=== PATIENT | female | born 1985 | race Caucasian/White ===

== ENCOUNTER 2018-06-30 06:28 | Inpatient (IN) | payer MEDICAID ==
[2018-06-30] MEDS ORDERED: OXYTOCIN 10 UNIT/ML VIAL ONE (06:56)
[2018-06-30] MEDS ORDERED: OXYTOCIN/NORMAL SALINE 20 UNIT/1,000 ML RTUINJ ONE (06:56)
[2018-06-30] MEDS ORDERED: LIDOCAINE 1% INJ-PF (10 MG/ML) 30 ML SDV ONE (06:56)
[2018-06-30] MEDS ORDERED: MISOPROSTOL 0.2 MG TABLET ONE (06:56)
[2018-06-30] MEDS: RINGERS SOLUTION,LACTATED 1,000 ML IV PRN ×2 (07:02→07:37)
[2018-06-30] MEDS ORDERED: EPHEDRINE SULFATE INJ 50 MG/1 ML AMPULE ONE (07:07)
[2018-06-30] MEDS ORDERED: FENTANYL/BUPIVACAINE/NS/PF 300 MCG/150 ML RTUINJ EPI ONE (07:07)
[2018-06-30] MEDS ORDERED: BUPIVACAINE HCL 0.5 % INJ/PF 30 ML SDV ONE (07:08)
[2018-06-30 07:21] LABS: ABSOLUTE BASOPHILS # (AUTO) 0.1 10^3/uL (0.0-0.2); ABSOLUTE EOSINOPHILS # (AUTO) 0.1 10^3/uL (0.0-0.6); ABSOLUTE LYMPHOCYTES (AUTO) 2.1 10^3/uL (0.5-4.7); ABSOLUTE MONOCYTES (AUTO) 0.7 10^3/uL (0.1-1.4); ABSOLUTE NEUT (AUTO) 5.6 10^3/uL (1.7-8.2); BASOPHILS % (AUTO) 1.3 % (0-2); EOSINOPHILS % (AUTO) 1.6 % (0-6); HEMATOCRIT 31.4 % (36.0-47.0); HEMOGLOBIN 10.1 g/dL (12.0-15.5); LYMPHOCYTES % (AUTO) 24.3 % (13-45); MEAN CORPUSCULAR HEMOGLOBIN 24.3 pg (27.0-33.4); MEAN CORPUSCULAR HGB CONC 32.1 g/dL (32.0-36.0); MEAN CORPUSCULAR VOLUME 76 fl (80-97); MONOCYTES % (AUTO) 7.7 % (3-13); PLATELET COUNT 233 10^3/uL (150-450); RED BLOOD COUNT 4.15 10^6/uL (3.72-5.28); RED CELL DISTRIBUTION WIDTH 15.9 % (11.5-14.0); SEGMENTED NEUTROPHILS % (AUTO) 65.1 % (42-78); TOTAL CELLS COUNTED % (AUTO) 100 %; WHITE BLOOD COUNT 8.6 10^3/uL (4.0-10.5)
[2018-06-30] MEDS ORDERED: BUPIVACAINE HCL 0.25 % INJ/PF (2.5 MG/1 ML) 30 ML VIAL ONE (07:45)
--- NOTE | 2018-06-30 08:26 | Admission Physical ---
Datetime Report Generated by CPN: 06/30/2018 08:26 CURRENT ADMISSION Chief Complaint: Uterine Contractions; Maternal Discomfort Admit Impression : Term, Intrauterine ; Active Labor Admit Plan: Admit to Unit ALLERGIES Medication Allergies: No Medication Allergies: No Known Allergies (06/30/2018) Latex: No Latex Allergies Food Allergies: n/a Environmental Allergies: n/a OBSTETRICAL HISTORY EDC: 07/02/2018 00:00 : 3 Para: 2 Term: 1 : 1 SAB: 0 IAB: 0 Ectopic: 0 Livin Cesareans: 0 VBACs: 0 Multiple Births: 0 Gestational Diabetes: No Rh Sensitization: No Incompetent Cervix: No CHAPIN: No Infertility: No ART Treatment: No Uterine Anomaly: No IUGR: No Hx Previous C/S: No Macrosomia: No Hx Loss/Stillborn: No PIH: No Hx : No Placenta Previa/Abruption: No Depression/PP Depression: No PTL/PROM: Yes Post Hemorrhage: No Obstetrical History Comments: g1-2006, , 28 weeks, female, del g2- , 40 weks, female, on 17p, no complications g3- current SEE RECORDS Alcohol: No Marijuana : No Cocaine: No Other Illicit Drugs: No Cigarettes: Never Smoker. [id number] MEDICAL HISTORY Diabetes: No Blood Transfusion: No Pulmonary Disease (Asthma, TB): No Breast Disease: Yes Hypertension: No Plasterer Spray Gun Surgery: Yes Heart Disease: No Hosp/Surgery: Yes Autoimmune Disorder: No Anesthetic Complications: No Kidney Disease: No Abnormal Pap Smear: No Neuro/Epilepsy: No Psychiatric Disorders: No Other Medical Diseases: No Hepatitis/Liver Disease: No Significant Family History: No Varicosities/Phlebitis: No Trauma/Violence : No Thyroid Dysfunction: No Medical History Comments: childbirth x 2, breast augmentation in 2014, endometritis, INFECTIOUS HISTORY Gonorrhea: No Genital Herpes: No Chlamydia: No Tuberculosis: No Syphilis: No Hepatitis: No HIV/AIDS Exposure: No Rash or Viral Illness: No HPV: No PHYSICAL EXAM General: Normal HEENT: Normal Neurologic: Normal Thyroid: Normal Heart: Normal Lungs: Normal Breast: Normal Back: Normal Abdomen: Normal Genitourinary Exam: Normal Extremities: Normal DTRs: Normal Pelvic Type: Adequate Vital Signs: Reviewed FETUS A EGA: 39.5 Monitoring: External US FHR- Baseline: 135 Variability: Moderate 6-25bpm Accelerations: 15X15 Decelerations: None FHR Comments: q2-3 Estimated Weight (gm): 3500 Presentation: Vertex Admit Comment: Pt comfortable with an epidural. PLan AROM w/ next VE. GBS negative. Dr Corona is the attending MD and aware of pt status PLANS FOR LABOR AND DELIVERY Labor and Delivery: None Pain Management: Epidural Feeding Preference: Both Benefit of Breast Feed Discussed: Yes Circumcision: N/A INFORMED CONSENT Assignment: Cadence Corona MD Signature: with User ID: [email or web address] : with User ID: [email or web address]
--- NOTE | 2018-06-30 08:48 | L&D Progress Notes ---
PROGRESS NOTES Datetime Report Generated by CPN: 06/30/2018 08:48 PROGRESS NOTE Impression: Normal Progression of Labor; Reassuring Heart Rate Procedures: Artificial ROM Plan: Continue Present Management; Anticipate Vaginal Delivery Vital Signs : Reviewed; Within Normal Limits Comment: Pt remains comfortable with the epidural. AROM, clear fluid. Position changes encouraged. Anticipate VAGINAL EXAM Dilatation: 9 Effacement: 100 Station: 0 Contractions: q2-4 LAST VAGINAL EXAM-NURSING Dilitation: 9.0 Dilitation: 6.0 Effacement: 100 Effacement: 100 Station: 0 Station: -2 FETUS A FHR - Baseline: 135 Monitoring: External US Variability: Moderate 6-25bpm Accelerations: 15X15 Decelerations: None FHR Category: Category I : 39.5 Estimated Weight (gm): 3500 Presentation: Vertex SIGNATURE SIGNATURE: [id number];[id number] SIGNATURE: [id number] Assignment: Cadence Corona MD Signature: with User ID: [email or web address] : with User ID: [email or web address]
[2018-06-30 10:20] LABS: APPEARANCE,URINE CLEAR; BILIRUBIN,URINE NEGATIVE (NEGATIVE); COLOR,URINE YELLOW; GLUCOSE, URINE NEGATIVE (NEGATIVE); KETONES,URINE NEGATIVE (NEGATIVE); LEUKOCYTE ESTERASE,URINE SMALL (NEGATIVE); NITRITE,URINE NEGATIVE (NEGATIVE); PROTEIN,URINE NEGATIVE (NEGATIVE); URINE SPECIFIC GRAVITY 1.019; UROBILINOGEN,URINE NEGATIVE mg/dL (<2.0)
[2018-06-30 10:36] LABS: URINE AMPHETAMINES SCREEN NEGATIVE; URINE BARBITURATES SCREEN NEGATIVE; URINE BENZODIAZEPINES SCREEN NEGATIVE; URINE COCAINE SCREEN NEGATIVE; URINE MARIJUANA (THC) SCREEN NEGATIVE; URINE METHADONE SCREEN NEGATIVE; URINE PHENCYCLIDINE SCREEN NEGATIVE
[2018-06-30] MEDS ORDERED: ZOLPIDEM TARTRATE 5 MG TABLET PO PRN (12:43)
[2018-06-30] MEDS ORDERED: MEASLES,MUMPS&RUBELLA VACC/PF 0.5 ML VIAL SUBCUT PRN (12:43)
[2018-06-30] MEDS ORDERED: BENZOCAINE/MENTHOL AEROSOL SPRAY 56 ML TOP PRN (12:43)
[2018-06-30] MEDS ORDERED: OXYTOCIN/NORMAL SALINE 20 UNIT/1,000 ML RTUINJ IV PRN (12:43)
[2018-06-30] MEDS ORDERED: DIPH/PERTUSS(ACELL)/TETANUS VAC/PF 0.5 ML SYR (>=10YO) IM PRN (12:43)
[2018-06-30] MEDS ORDERED: DIBUCAINE 1% OINTMENT 28 GM TP PRN (12:43)
--- NOTE | 2018-06-30 13:31 | Delivery Summary ---
Del Sum A-C Datetime Report Generated by CPN: 06/30/2018 13:31 DELIVERY PERSONNEL DELIVERY PERSONNEL: [id number] Delivery Doctor:: Victoria Sweeney CNM Labor and Delivery Nurse:: Aura Lopez RN Nursery Nurse:: Rebecca Calles RN Polygraph Operator/EGG TESTER: Perlajazmin Burch, EGG TESTER II MATERNAL INFORMATION Delivery Anesthesia: Epidural Medications After Delivery: Pitocin Drip 20 Units/1000ml NSS Maternal Complications: None Provider Comments: of viable baby girl. MOLINA position, loose NC x 1 easily reduced. Baby placed on pts abdoman in stable condition. Cord cut and clamped after one minute. Cord blood collected. Placenta delivered S/C/I, ff w/decreased lochia rubra. IV Pitocin infusing. 2nd degree laceration repaired. EbL 200 ml. Pt and baby stable and are skin to skin. Pt plans to breastfeed. Attending MD is Dr Corona LABOR SUMMARY EDC: 07/02/2018 00:00 No. Babies in Womb: 1 Attempted: No Labor Anesthesia: Epidural LABOR INFORMATION Reason for Induction: Not Applicable Onset of Labor: 06/30/2018 04:00 Complete Dilatation: 06/30/2018 09:40 Oxytocin: N/A Group B Beta Strep: Negative Steroids Given: None Reason Steroids Not Administered: Not Applicable MEMBRANES Membranes Rupture Method: Artificial Rupture of Membranes: 06/30/2018 08:43 Length of Rupture (hr): 2.07 Amniotic Fluid Color: Clear Amniotic Fluid Amount: Small Amniotic Fluid Odor: Normal STAGES OF LABOR Stage 1 hr: 5 Stage 1 min: 40 Stage 2 hr: 1 Stage 2 min: 7 Stage 3 hr: 0 Stage 3 min: 4 Total Time in Labor hr: 6 Total Time in Labor min: 51 VAGINAL DELIVERY Episiotomy: None Laceration #1: Perineal Laceration Extension #1: Second Degree Laceration Repair: Yes Laceration Repair Note: 2nd degree laceration repaired w/ 3.0 Vicryl under epidural anesthesia. Pt tolerated well Sponge Count Correct: N/A CSECTION DELIVERY Primary Indication: N/A BABY A INFORMATION Infant Delivery Date/Time: 06/30/2018 10:47 Method of Delivery: Vaginal Born in Route : No : N/A Forceps: N/A Vacuum Extraction: N/A Shoulder Dystocia : No PRESENTATION/POSITION BABY A Presentation: Cephalic Cephalic Presentation: Vertex Vertex Position: Right Occipital Anterior Breech Presentation: N/A PLACENTA INFORMATION BABY A Placenta Delivery Time : 06/30/2018 10:51 Placenta Method of Delivery: Spontaneous Placenta Status: Delivered SCORES BABY A Heart Rate 1 min: >100 bpm Resp Effort 1 min: Slow, Irregular Reflex Irritability 1 min: Cough or Sneeze or Pulls Away Muscle Tone 1 min: Active Motion Color 1 min: Body [place], Extremities Blue Resuscitation Effort 1 min: N/A SCORE 1 MIN: 8 Heart Rate 5 min: >100 bpm Resp Effort 5 min: [place] Reflex Irritability 5 min: Cough or Sneeze or Pulls Away Muscle Tone 5 min: Active Motion Color 5 min: Body [place], Extremities Blue Resuscitation Effort 5 min: N/A SCORE 5 MIN: 9 INFANT INFORMATION BABY A Gestational Age at Delivery: 39.5 Gestational Status: Full Term- 39- 40.6 Weeks Outcome : Liveborn Infant Condition : Stable Sex: Female IDENTIFICATION BABY A Verification Date/Time: 06/30/2018 11:41 ID Band Number: [id number] Mother's Name Verified: Yes Infant RN Verifying : Priscilla Lopez, Rn/ S. [place], RN WEIGHT/LENGTH BABY A Birthweight (gm): 3672 Weight (lb): 8 Infant Weight (oz): 2 Length (in): 20.50 Length (cm): 52.07 CORD INFORMATION BABY A No. 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
[2018-06-30] MEDS: IBUPROFEN 800 MG TABLET PO SCH ×2 (16:27→21:15)
[2018-06-30] MEDS: FERROUS SULFATE 325 MG TABLET PO SCH (17:40)
[2018-06-30] MEDS: DOCUSATE SODIUM 100 MG CAPSULE PO SCH (17:41)
[2018-06-30] MEDS: ACETAMINOPHEN WITH CODEINE #3 TABLET PO PRN (17:41)
[2018-07-01] MEDS: ACETAMINOPHEN WITH CODEINE #3 TABLET PO PRN (04:18)
[2018-07-01] MEDS: IBUPROFEN 800 MG TABLET PO SCH ×2 (06:37→14:54)
[2018-07-01 06:50] LABS: HEMATOCRIT 28.3 % (36.0-47.0); MEAN CORPUSCULAR HEMOGLOBIN 24.2 pg (27.0-33.4); MEAN CORPUSCULAR VOLUME 76 fl (80-97); PLATELET COUNT 173 10^3/uL (150-450); RED BLOOD COUNT 3.74 10^6/uL (3.72-5.28); RED CELL DISTRIBUTION WIDTH 15.5 % (11.5-14.0); WHITE BLOOD COUNT 11.7 10^3/uL (4.0-10.5)
[2018-07-01 08:58] VITALS: BP 128/59
--- NOTE | 2018-07-01 09:11 | PDOC DISCHARGE SUMMARY ---
Final Diagnosis Discharge Date: 07/01/18 - PP Day #1, Desires to go home today on [place]. Doing well, no complaints. , O+, Rubella Immune - Final Diagnosis (1) (normal spontaneous vaginal delivery) Is this a current diagnosis for this admission?: Yes (2) Normal course Is this a current diagnosis for this admission?: Yes Discharge Data - Discharge Medication Home Medications: Ferrous Sulfate [Iron] 325 mg PO DAILY 06/30/18 Pnv No.95/Ferrous Fum/Folic AC [ Formula] 1 each PO DAILY 06/30/18 Ranitidine HCl [Zantac] 300 mg PO DAILY 06/30/18 Reason(s) for Admission: Onset of Labor Procedures: Ultrasound Intrapartum Procedure(s): Spontaneous Vaginal Delivery Complication(s): Laceration-Vaginal Laceration-Degree: 2nd - Diagnosis Test Laboratory: Temp Pulse Resp BP Pulse Ox 98.8 F 71 16 127/75 H 98 07/01/18 08:39 07/01/18 08:39 07/01/18 08:39 07/01/18 08:39 07/01/18 08:39 06/30/18 06/30/18 07/01/18 06:35 07:05 06:37 RBC 4.15 3.74 Hgb 10.1 L 9.0 L Hct 31.4 L 28.3 L Urine Opiates Screen NEGATIVE - Discharge information/Instructions Discharge Activity: Activity As Tolerated, Balance Activity w/Rest, No tub bath Discharge Diet: As Tolerated, Regular Disposition: HOME, SELF-CARE Follow up with: [facility] in: 4, Weeks
[2018-07-01] MEDS ORDERED: FERROUS SULFATE 325 MG TABLET PO SCH (10:00)
[2018-07-01] MEDS ORDERED: SENNOSIDES/DOCUSATE 8.6-50 MG 1 EACH TABLET PO SCH (10:00)
[2018-07-01] MEDS ORDERED: PRENATAL VITAMIN W DHA CAPSULE PO SCH (10:00)
[2018-07-01] MEDS: FERROUS SULFATE 325 MG TABLET PO SCH (10:43)
[2018-07-01] MEDS: DOCUSATE SODIUM 100 MG CAPSULE PO SCH (10:43)
== END 2018-07-01 17:33 | disposition home or self-care (01) | DRG 807 ==
LOC: LC 06:28 → LR 06:44 → 2S 13:39
PROVIDERS: ADMIT Obstetrics & Gynecology Gynecology; ATTEND Obstetrics & Gynecology Gynecology
PROC: 10E0XZZ Delivery of Products of Conception, External Approach (ICD-10-PCS; principal; 2018-06-30)
PROC: 4A1HXCZ Monitoring of Products of Conception, Cardiac Rate, External Approach (ICD-10-PCS; 2018-06-30)
PROC: 3E02340 Introduction of Influenza Vaccine into Muscle, Percutaneous Approach (ICD-10-PCS; 2018-07-01)
DX: O69.81X0 Labor and delivery complicated by cord around neck, without compression, not applicable or unspecified (principal); Z37.0 Single live birth; O70.1 Second degree perineal laceration during delivery; Z3A.39 39 weeks gestation of pregnancy; Z23 Encounter for immunization
CPT/HCPCS: 36415; 80307; 81005; 85025; 85027; 86592; 86850; 86900; 86901; 90471; 90686; G0008; J2590; J3010; J3490

== ENCOUNTER 2019-09-27 00:24 | Emergency (ER) | payer MEDICAID ==
--- NOTE | 2019-09-27 00:43 | ER Document Report ---
ED Medical Screen (RME) - General Chief Complaint: Laceration Stated Complaint: LEFT ARM LACERATION Time Seen by Provider: 09/27/19 00:42 Primary Care Provider: JAYDON AMIN MD [Primary Care Provider] - Follow up as needed Notes: HPI: 34-year-old healthy female who has been drinking alcohol tonight presenting for a complex laceration to the left forearm. Patient fell onto a sharp piece of metal cutting the left forearm. Denies numbness or tingling in the fingertips. States she can move the fingers of the left hand. States her tetanus vaccination is up-to-date in the last 5 years I have greeted and performed a rapid initial assessment of this patient. A comprehensive ED assessment and evaluation of the patient, analysis of test results and completion of the medical decision making process will be conducted by additional ED providers PHYSICAL EXAMINATION: There is a 5 cm linear laceration horizontally across the left mid forearm on the dorsal aspect. There is muscle belly visible through the fascia with flexion extension of the fingers of the left hand. TRAVEL OUTSIDE OF THE [place] IN LAST 30 DAYS: No - Related Data Allergies/Adverse Reactions: No Known Allergies Allergy (Verified 06/30/18 06:34) Past Medical History - Immunizations Hx Diphtheria, Pertussis, Tetanus Vaccination: No Physical Exam - Vital signs Vitals: Temp Pulse Resp BP Pulse Ox 98.1 F 107 H 17 155/72 H 100 09/27/19 00:29 09/27/19 00:29 09/27/19 00:29 09/27/19 00:29 09/27/19 00:29 Course - Vital Signs Vital signs: Temp Pulse Resp BP Pulse Ox 98.1 F 107 H 17 155/72 H 100 09/27/19 00:29 09/27/19 00:29 09/27/19 00:29 09/27/19 00:29 09/27/19 00:29 Doctor's Discharge - Discharge Referrals: JAYDON AMIN MD [Primary Care Provider] - Follow up as needed
[2019-09-27] MEDS ORDERED: LIDOCAINE 1%/EPINEPHRINE INJ 20 ML VIAL INJ ONE (01:42)
--- NOTE | 2019-09-27 01:43 | ER Document Report ---
ED Wound - General Chief Complaint: Laceration Stated Complaint: LEFT ARM LACERATION Time Seen by Provider: 09/27/19 00:42 Primary Care Provider: JAYDON AMIN MD [Primary Care Provider] - Follow up as needed Notes: Patient is a 34-year-old female who presents to the emergency department the chief complaint of a laceration to her left dorsal forearm. Patient states that she was drinking alcohol tonight and ended up falling on a piece of metal. She is up-to-date on her immunizations. She is able to move her fingers with no difficulty. Denies any past medical history. Does not take any medications. TRAVEL OUTSIDE OF THE [place] IN LAST 30 DAYS: No - Related Data Allergies/Adverse Reactions: No Known Allergies Allergy (Verified 06/30/18 06:34) Past Medical History - Social History Smoking Status: Never Smoker Chew tobacco use (# tins/day): No Frequency of alcohol use: Occasional Drug Abuse: None Family History: Reviewed & Not Pertinent Patient has suicidal ideation: No Patient has homicidal ideation: No - Immunizations Hx Diphtheria, Pertussis, Tetanus Vaccination: No Review of Systems - Review of Systems Notes: REVIEW OF SYSTEMS: CONSTITUTIONAL : Denies recent illness. Denies recent unintentional weight loss. Denies fever, chills, or sweats. EENT: Denies eye, ear, throat, or mouth pain, discharge, or symptoms. Denies nasal or sinus congestion. CARDIOVASCULAR: Denies chest pain. RESPIRATORY: Denies shortness of breath, cough, congestion, difficulty breathing, or wheezing. GASTROINTESTINAL: Denies nausea, vomiting, and diarrhea. Denies abdominal pain. Denies constipation. GENITOURINARY: Denies difficulty urinating, burning, blood in urine, urgency or frequency. MUSCULOSKELETAL: Denies neck and back pain. Denies joint pain or swelling. SKIN: See HPI. HEMATOLOGIC : Denies easy bruising or bleeding. LYMPHATIC: Denies swollen, painful, enlarged glands. NEUROLOGICAL: Denies no numbness or tingling denies weakness. Denies headache. Denies altered mental status. Denies alteration in speech. PSYCHIATRIC: Denies stress, anxiety, alteration in sleep patterns, or depression. All other systems reviewed and negative. Physical Exam - Vital signs Vitals: Temp Pulse Resp BP Pulse Ox 98.1 F 107 H 17 155/72 H 100 09/27/19 00:29 09/27/19 00:29 09/27/19 00:29 09/27/19 00:09/27/19 00:29 - Notes Notes: PHYSICAL EXAMINATION: GENERAL: Appears well, healthy, well-nourished, no acute distress. HEAD: Normocephalic, atraumatic. EYES: PERRL, conjunctiva normal, all extraocular movements intact, sclera nonicteric ENT: Moist mucous membranes. NECK: Supple, no noticeable swelling, redness, rash. Normal range of motion. LUNGS: Equal breath sounds bilaterally and clear to auscultation. No wheezes rales or rhonchi. CARDIOVASCULAR: S1-S2, regular rate, regular rhythm. Radial pulses 2+, normal. ABDOMEN: Normoactive bowel sounds. Soft, nontender, no guarding, no rebound tenderness, and no masses palpated. EXTREMITIES: Normal strength and range of motion, no pitting or edema. No cyanosis. NEUROLOGICAL: Moves all extremities upon command. Strength 5/5 in all extremities. PSYCH: Normal mood, normal affect. SKIN: Warm, dry. Laceration noted to left dorsal forearm. Course - Re-evaluation Re-evalutation: 09/27/19 03:00 Patient is still able to flex and extend all digits without difficulty. I have a very low suspicion for a tendon rupture. Laceration was repaired. See procedure note. Patient will follow-up with urgent care or the ED to have her stitches removed. Instructions given to the patient. Follow-up precautions were given. Verbal discharge instructions were given to the patient. They verbalized understanding. They are stable for discharge. - Vital Signs Vital signs: Temp Pulse Resp BP Pulse Ox 98.3 F 108 H 14 130/66 H 98 09/27/19 02:55 09/27/19 02:55 09/27/19 02:55 09/27/19 02:55 09/27/19 02:55 Procedures - Laceration/Wound Repair Left forearm Wound length (cm): 6 Wound's Depth, Shape: Into muscle, Linear Laceration pre-procedure: Sterile PPE donned, Sterile drapes applied, Shur-Clens applied Anesthetic type: 1% Lidocaine w/epi Volume Anesthetic (mLs): 10 Wound explored: Clean, No foreign body removed Irrigated w/ Saline (mLs): 50 Wound Debrided: Minimal Wound Repaired With: Sutures Suture Size/Type: 4:0, Nylon Number of Sutures: 9 Deep Layer Suture Size/Type: 5:0, Chromic Number Deep Layer Sutures: 2 Post-procedure wound care: Sterile dressing applied Post-procedure NV exam normal: Yes Complications: No Adult Front & Back picture: 1 - Laceration Discharge - Discharge Clinical Impression: Laceration of left forearm Qualifiers: Encounter type: initial encounter Qualified Code(s): S51.812A - Laceration without foreign body of left forearm, initial encounter Condition: Stable Disposition: HOME, SELF-CARE Instructions: Laceration Care ([facility]), Soap Cleansing ([facility]) Additional Instructions: Please return to your primary doctor, the ED, or an urgent care in 7 days for suture removal. Return immediately if you develop spreading redness around the wound, pus from the wound, worsening pain, or a fever of >100.4. Keep the area clean and dry. Wash gently with soap and water twice daily and cover with antibiotic ointment. Referrals: AJYDON AMIN MD [Primary Care Provider] - Follow up as needed
[2019-09-27 02:56] VITALS: BP 130/66
== END 2019-09-27 03:07 | disposition home or self-care (01) ==
LOC: ER 00:24
DX: S56.922A Laceration of unspecified muscles, fascia and tendons at forearm level, left arm, initial encounter (principal); S51.812A Laceration without foreign body of left forearm, initial encounter; W19.XXXA Unspecified fall, initial encounter; W22.8XXA Striking against or struck by other objects, initial encounter
CPT/HCPCS: 99282; 12032; J3490